=== PATIENT | male | born 1995 | race American Indian/Alaskan Native ===

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

== ENCOUNTER 2017-02-11 21:29 | Emergency (ER) | payer OTHER ==
[2017-02-11 21:30] VITALS: BMI 25.7
[2017-02-11] MEDS ORDERED: levETIRAcetam 500 MG in Sodium Chloride 0.9% 100 ML IVPB STA (22:03)
[2017-02-11 22:17] LABS: MEAN CORPUSCULAR HEMOGLOBIN 28.2 pg (27.0-31.0)
--- NOTE | 2017-02-11 22:20 | C.PDOC ---
History Of Present Illness 21 y/o M c PMHx seizure disorder p/w seizure x 2 today. Seizures witnessed, on bed, no evidence of trauma. No urinary or bowel incontinence. Patient with multiple vomiting episodes after seizures. Post ictal period present after both. Patient was on Keppra 750mg BID for 5 months and seizure free but ran out yesterday and took no Keppra since last night. Currently post ictal, full ROS/ HPI unobtainable. Time Seen by Provider: 02/11/17 21:57 Chief Complaint (Nursing): Seizure Past Medical History Vital Signs: Last Vital Signs Temp 98.4 F 02/11/17 21:51 Pulse 89 02/11/17 22:39 Resp 20 02/11/17 22:39 BP 152/86 H 02/11/17 22:39 Pulse Ox 100 02/11/17 22:39 - Medical History PMH: Seizures (New onset June 2016) Family History: States: No Known Family Hx - Social History Hx Tobacco Use: No Hx Alcohol Use: No Hx Substance Use: No - Immunization History Hx Tetanus Toxoid Vaccination: Yes Hx Influenza Vaccination: No Hx Pneumococcal Vaccination: No Review Of Systems Review Of Systems: ROS cannot be obtained secondary to pt's inabilty to answer questions. Physical Exam - Physical Exam Additional Physical Exam Comments: Gen: No acute distress. Head: Normocephalic, atraumatic. Eyes: PERRL. ENT: Moist mucous membranes. L sided tongue bite without laceration. Neck: Supple. No midline tenderness. Chest: No tenderness. CV: Regular rate. Radial pulses 2+ bilaterally. Resp: Clear to auscultation bilaterally. Abd: Soft, nontender, nondistended. Extremities: No swelling or tenderness. Skin: No rash. Neuro: Alert, no focal deficit. Drowsy. Oriented x 3. ED Course And Treatment - Laboratory Results Result Diagrams: 02/11/17 22:11 02/11/17 22:11 O2 Sat by Pulse Oximetry: 100 Medical Decision Making Medical Decision Making: Breakthrough seizure likely due to discontinuation of Keppra since yesterday morning. Will administer Keppra, give refill prescription, check labs, urine, CT , XR to exclude other causes of seizure. FINDINGS: Brain: No acute intracranial hemorrhage. No significant white matter disease. No edema. Ventricles: No significant ventriculomegaly. Bones: No acute displaced fracture. Sinuses: Unremarkable as visualized. No acute sinusitis. Mastoid air cells: Unremarkable as visualized. No mastoid effusion. IMPRESSION: No acute intracranial hemorrhage, or suspicious mass effect. Patient returned to baseline, awake, alert. Will discharge, continue Keppra, f/ u neuro for further management and medication, return to ED for any worsening symptoms. Disposition - Disposition Disposition: HOME/ ROUTINE Disposition Time: 23:05 Condition: STABLE Prescriptions: Levetiracetam [Keppra] 750 mg PO BID #14 tablet Instructions: Epilepsy (ED) Forms: [employer] (Persian) - Clinical Impression Clinical Impression: Seizure, Medication refill
[2017-02-11 22:31] LABS: ALB/GLOB RATIO 1.2 (1.0-2.1); ALKALINE PHOSPHATASE 77 U/L (38-126); ALT/SGPT 34 U/L (21-72); AST/SGOT 31 U/L (17-59); BILIRUBIN,TOTAL 0.4 mg/dL (0.2-1.3); BLOOD UREA NITROGEN 11 mg/dL (9-20); CALCIUM 9.2 mg/dl (8.6-10.4); CARBON DIOXIDE 22 mmol/L (22-30); CHLORIDE 100 mmol/L (98-107); GFR AFRICAN-AMERICAN > 60; GLUCOSE,RANDOM 165 mg/dL (75-110); SODIUM 136 mmol/L (132-148); TOTAL PROTEIN 9.1 g/dL (6.3-8.3)
[2017-02-11 22:32] LABS: BASO # 0.1 K/uL (0.0-0.2); BASO % 0.6 % (0.0-2.0); EOS % 0.1 % (0.0-4.0); LYMPH # 1.2 K/uL (1.0-4.3); LYMPH % 8.4 % (20.0-40.0); MEAN CELL VOLUME 83.4 fL (80.0-94.0); MEAN CORPUSCULAR HGB CONC 33.9 g/dL (33.0-37.0); MEAN PLATELET VOLUME 9.2 fL (7.2-11.7); MONO # 0.9 K/uL (0.0-0.8); MONO % 6.3 % (0.0-10.0); NRBC % 0.1 % (0.0-2.0); PLATELET COUNT 272 K/uL (130-400); WHITE BLOOD COUNT 13.7 K/uL (4.8-10.8)
[2017-02-11 22:34] LABS: POTASSIUM 4.3 mmol/L (3.6-5.2)
[2017-02-11 22:57] LABS: NEUTROPHIL 85 % (50-75); REACTIVE LYMPHOCYTES 1 % (0-0); TOTAL CELLS COUNTED 100
[2017-02-12 00:47] VITALS: BP 126/60; PULSE 86; RESP 19; TEMP 98; O2SAT 100
--- NOTE | 2017-02-12 10:04 | CT ---
PROCEDURE: CT HEAD WITHOUT CONTRAST. HISTORY: seizure COMPARISON: Unenhanced head CT 08/10/2016. TECHNIQUE: Axial computed tomography images were obtained through the head/brain without intravenous contrast. Radiation dose: Total exam DLP = 839.16 mGy-cm. This CT exam was performed using one or more of the following dose reduction techniques: Automated exposure control, adjustment of the mA and/or kV according to patient size, and/or use of iterative reconstruction technique. FINDINGS: HEMORRHAGE: No intracranial hemorrhage. BRAIN: Normal jo-white matter differentiation and density are appreciated throughout the cerebrum and cerebellum with the brainstem appearing unremarkable as well. There is no mass effect. There is no suspicious extra-axial fluid collection and the midline brain anatomy appears diffusely unremarkable. VENTRICLES: Unremarkable. No hydrocephalus. CALVARIUM: Unremarkable. PARANASAL SINUSES: Unremarkable as visualized. No significant inflammatory changes. MASTOID AIR CELLS: Unremarkable as visualized. No inflammatory changes. OTHER FINDINGS: None. IMPRESSION: Unremarkable unenhanced head CT. No significant interval change compared to CT 08/10/2016.
== END 2017-02-12 01:34 | disposition home or self-care (01) ==
LOC: C.ER 21:29
DX: G40.909 Epilepsy, unspecified, not intractable, without status epilepticus (principal); Z76.0 Encounter for issue of repeat prescription
CPT/HCPCS: 70450; 80053; 82948; 85025; 96374; 99285; J1953; J2405

== ENCOUNTER 2017-09-13 16:11 | Emergency (ER) | payer OTHER ==
[2017-09-13 16:11] VITALS: BMI 25.7
[2017-09-13 16:25] VITALS: BP 125/81; PULSE 80; RESP 18; TEMP 98.8; O2SAT 100
--- NOTE | 2017-09-13 17:05 | C.PDOC ---
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 Patient denies weakness/changes in sensation. Patient also request a refill of his Keppra for his epilespy. He states he is compliant with the medication and just refilled it 3 days ago. He has a month supply but that was his last refill so he is requesting another one. His last seizure was 4 days ago and "it wasn't that bad". Prior to that seizure, "it was months". Time Seen by Provider: 09/13/17 16:28 Chief Complaint (Nursing): Med Refill History Per: Patient History/Exam Limitations: no limitations Onset/Duration Of Symptoms: Other (SIGN POSTER) Past Medical History Reviewed: Historical Data, Nursing Documentation, Vital Signs Vital Signs: Last Vital Signs Temp 98.8 F 09/13/17 16:21 Pulse 80 09/13/17 16:21 Resp 18 09/13/17 16:21 BP 125/81 09/13/17 16:21 Pulse Ox 100 09/13/17 20:10 - Medical History PMH: Seizures (New onset June 2016) Family History: States: No Known Family Hx - Social History Hx Tobacco Use: No Hx Alcohol Use: No Hx Substance Use: No - Immunization History Hx Tetanus Toxoid Vaccination: Yes Hx Influenza Vaccination: No Hx Pneumococcal Vaccination: No Review Of Systems Except As Marked, All Systems Reviewed And Found Negative. Constitutional: Positive for: Other (laceration to left second finger ) Neurological: Negative for: Weakness, Other (changes in sensation) Physical Exam - Physical Exam Appears: Well, Non-toxic, No Acute Distress Skin: Warm, Dry Head: Atraumatic, Normacephalic Eye(s): bilateral: Normal Inspection, EOMI Nose: Normal Oral Mucosa: Moist Neck: Normal ROM, Supple Chest: Symmetrical Cardiovascular: Rhythm Regular Respiratory: Normal Breath Sounds Extremity: Normal ROM, Capillary Refill (<2 sec), No Deformity, No Swelling, Other ((+) 1 cm laceration to the dip of the left 2nd finger) Pulses: Left Radial: Normal, Right Radial: Normal Neurological/Psych: Oriented x3, Normal Speech, Normal Motor, Normal Sensation Gait: Steady ED Course And Treatment O2 Sat by Pulse Oximetry: 100 (RA) Pulse Ox Interpretation: Normal Progress Note: Pt was offered sutured but declined. Pt was offered further evaluation for the seizure but declined. Plans: -- Applied steri strip and finger splint. Patient instructed to f/u with Neurologist Dr. Pantoja to prescribe patient's refill. Laceration - Laceration Repair lateral aspect of left second digit Wound Length (In cm): 1 Description Of Wound: Linear Wound Cleansed With: Betadine, Sterile Saline Wound Examination: Irrigated With Saline, No FB With Wound Exploration, No Tendon Injury With Wound Exploration Wound Closure: Steri Strips Wound Complexity: Simple Disposition - Disposition Referrals: Mena Pantoja MD [Staff Provider] - Disposition: HOME/ ROUTINE Disposition Time: 17:03 Condition: STABLE Additional Instructions: Call the neurologist to make an appointment. Return to ER if symptoms persist or worsen. Instructions: Seizures, Adult (DC) Forms: [employer] (Russian) - Clinical Impression Clinical Impression: Finger laceration, Seizure disorder - PA / FOOD ADVISER / Resident Statement / has reviewed & agrees with the documentation as recorded. - Scribe Statement The provider has reviewed the documentation as recorded by the Ladarius Landers Do All medical record entries made by the Scribe were at my direction and personally dictated by me. I have reviewed the chart and agree that the record accurately reflects my personal performance of the history, physical exam, medical decision making, and the department course for this patient. I have also personally directed, reviewed, and agree with the discharge instructions and disposition.
== END 2017-09-13 17:20 | disposition home or self-care (01) ==
LOC: C.ER 16:11
DX: S61.211A Laceration without foreign body of left index finger without damage to nail, initial encounter (principal); W26.0XXA Contact with knife, initial encounter; Y92.9 Unspecified place or not applicable; G40.909 Epilepsy, unspecified, not intractable, without status epilepticus